=== PATIENT | male | born 1995 | race African-American/Black ===

== ENCOUNTER 2019-05-18 20:19 | Emergency (ER) | payer SELFPAY ==
--- NOTE | 2019-05-18 20:37 | EDM.PDOC ---
ED HPI GENERAL MEDICAL PROBLEM - General Stated Complaint: CHECK BLOOD/CHECK UP Time Seen by Provider: 05/18/19 20:36 Source of Information: Reports: Patient History Limitations: Reports: No Limitations - History of Present Illness INITIAL COMMENTS - FREE TEXT/NARRATIVE: pt has no c/o. requesting blood test for general check up. explained to pt the clinic can do more extensive testing. - Related Data Allergies Allergy/AdvReac Type Severity Reaction Status Date / Time No Known Allergies Allergy Verified 05/18/19 20:50 Home Meds: Home Meds . [No Known Home Meds] 05/18/19 [History] ED ROS GENERAL - Review of Systems Review Of Systems: ROS reveals no pertinent complaints other than HPI. ED EXAM, GENERAL - Physical Exam Exam: See Below Exam Limited By: No Limitations General Appearance: Alert, WD/WN, No Apparent Distress Eye Exam: Bilateral Eye: PERRL (pupils ER @ 4mm) Ears: Hearing Grossly Normal Throat/Mouth: Normal Voice, No Airway Compromise Head: Atraumatic Neck: Non-Tender, Full Range of Motion Respiratory/Chest: No Respiratory Distress Cardiovascular: Regular Rate, Rhythm GI/Abdominal: Soft, Non-Tender Neurological: Alert, Oriented, Normal Cognition, Normal Gait, No Motor/Sensory Deficits Psychiatric: Normal Affect, Normal Mood Skin Exam: Warm, Dry, Normal Color Lymphatic: No Adenopathy Course - Vital Signs Last Recorded V/S: Last Vital Signs Temp 36.4 C 05/18/19 20:51 Pulse 64 05/18/19 20:51 Resp 16 05/18/19 20:51 BP 108/68 05/18/19 20:51 Pulse Ox 100 05/18/19 20:51 - Orders/Labs/Meds Labs: Laboratory Tests 05/18/19 05/18/19 Range/Units 20:43 20:43 WBC 5.8 (5.0-10.0) 10^3/uL RBC 5.13 (4.6-6.2) 10^6/uL Hgb 15.3 (14.0-18.0) g/dL Hct 43.5 (40.0-54.0) % MCV 84.8 (80-100) fL MCH 29.8 (27.0-34.0) pg MCHC 35.2 H (33.0-35.0) g/dL Plt Count 277 (150-450) 10^3/uL Neut % (Auto) 46.8 (42.2-75.2) % Lymph % (Auto) 40.9 (20.5-50.1) % [place] % (Auto) 9.2 H (2-8) % Eos % (Auto) 1.9 (1.0-3.0) % Baso % (Auto) 1.2 H (0.0-1.0) % Sodium 135 (135-145) mmol/L Potassium 3.7 (3.6-5.0) mmol/L Chloride 103 (101-111) mmol/L Carbon Dioxide 24.0 (21.0-31.0) mmol/L Anion Gap 11.7 BUN 17 (7-18) mg/dL Creatinine 0.9 (0.6-1.3) mg/dL Est Cr Clr Drug Dosing 126.65 mL/min Estimated GFR (MDRD) > 60 BUN/Creatinine Ratio 18.88 Glucose 87 (74-105) mg/dL Calcium 9.5 (8.4-10.2) mg/dl Total Bilirubin 0.8 (0.2-1.0) mg/dL AST 30 (10-42) IU/L ALT 23 (10-60) IU/L Alkaline Phosphatase 52 (42-121) IU/L Total Protein 7.9 (6.7-8.2) g/dl Albumin 4.3 (3.2-5.5) g/dl Globulin 3.6 Albumin/Globulin Ratio 1.19 - Re-Assessments/Exams Free Text/Narrative Re-Assessment/Exam: 05/18/19 21:43 results discussed with pt Departure - Departure Time of Disposition: 21:43 Disposition: Home, Self-Care 01 Condition: Good Clinical Impression: Well adult health check - Discharge Information Forms: ED Department Discharge Additional Instructions: 1) see clinic for further other testings that are not available in the ER
[2019-05-18 21:12] LABS: ANION GAP 11.7; CHLORIDE,CL 103 mmol/L (101-111); SODIUM,NA 135 mmol/L (135-145)
== END 2019-05-18 22:00 | disposition home or self-care (01) ==
LOC: DL.ED 20:19
DX: Z00.00 Encounter for general adult medical examination without abnormal findings (principal)
CPT/HCPCS: 36415; 80053; 85025; 99282

== ENCOUNTER 2019-12-03 19:35 | Emergency (ER) | payer SELFPAY ==
--- NOTE | 2019-12-03 20:32 | EDM.PDOC ---
ED HPI GENERAL MEDICAL PROBLEM - General Chief Complaint: General Stated Complaint: sweating Time Seen by Provider: 12/03/19 19:50 Source of Information: Reports: Patient History Limitations: Reports: No Limitations - History of Present Illness INITIAL COMMENTS - FREE TEXT/NARRATIVE: ED with c/o of skin itching on abdomen and back, some to arms when sweats. No other sx, Has been going on for months. Has not tried anything to alleviate sx. Does not notice itching unless working out and sweating - Related Data Allergies Allergy/AdvReac Type Severity Reaction Status Date / Time No Known Allergies Allergy Verified 12/03/19 19:43 Home Meds: Home Meds . [No Known Home Meds] 05/18/19 [History] Past Medical History - Past Health History Medical/Surgical History: Denies Medical/Surgical History Social & Family History - Family History Family Medical History: Noncontributory - Tobacco Use Smoking Status *Q: Never Smoker Second Hand Smoke Exposure: No - Caffeine Use Caffeine Use: Reports: None - Recreational Drug Use Recreational Drug Use: No ED ROS GENERAL - Review of Systems Review Of Systems: Comprehensive ROS is negative, except as noted in HPI. ED EXAM, GENERAL - Physical Exam Exam: See Below Exam Limited By: No Limitations General Appearance: Alert, No Apparent Distress Eye Exam: Bilateral Eye: EOMI Ears: Normal External Exam, Normal TMs Nose: Normal Inspection Throat/Mouth: Normal Inspection Head: Atraumatic, Normocephalic Neck: Normal Inspection Respiratory/Chest: No Respiratory Distress, Lungs Clear, Normal Breath Sounds Cardiovascular: Regular Rate, Rhythm GI/Abdominal: Soft Back Exam: Normal Inspection Extremities: Normal Inspection Neurological: Alert, Oriented, Normal Cognition Psychiatric: Normal Affect, Normal Mood Skin Exam: Warm, Dry, Intact, No Rash, Other (skin dry no rash no papules, no sign of infection. ). No: Rash, Wound/Incision Course - Vital Signs Last Recorded V/S: Last Vital Signs Temp 98.2 F 12/03/19 19:42 Pulse 83 12/03/19 19:42 Resp 18 12/03/19 19:42 BP 103/74 12/03/19 19:42 Pulse Ox 100 12/03/19 19:42 Departure - Departure Time of Disposition: 20:27 Disposition: Home, Self-Care 01 Condition: Good Clinical Impression: Itching - Discharge Information *PRESCRIPTION DRUG MONITORING PROGRAM REVIEWED*: No *COPY OF PRESCRIPTION DRUG MONITORING REPORT IN PATIENT [place]: No Instructions: Pruritus Forms: ED Department Discharge Additional Instructions: skin moisturizer without alcohol or perfume additives increase fluids non allergenic soaps clinic follow up if not improving after one week trial trial OTC antihistamine daily as needed, loratadine for example or zyrtec per package instructions Sepsis Event Note - Evaluation Sepsis Screening Result: No Definite Risk - Focused Exam Vital Signs: Vital Signs Temp Pulse Resp BP Pulse Ox 12/03/19 19:42 98.2 F 83 18 103/74 100 Date Exam was Performed: 12/04/19 Time Exam was Performed: 04:54
== END 2019-12-03 20:41 | disposition home or self-care (01) ==
LOC: DL.ED 19:35
DX: L29.9 Pruritus, unspecified (principal)
CPT/HCPCS: 99282

== ENCOUNTER 2021-08-27 08:59 | Emergency (ER) | payer SELFPAY ==
[2021-08-27] MEDS ORDERED: Ibuprofen 800 MG Tab PO ONE (09:12)
[2021-08-27] MEDS ORDERED: Gentamicin 0.3% Ophth Soln 5 ML Bottle EYELF ONE (09:12)
== END 2021-08-27 09:39 | disposition home or self-care (01) ==
LOC: DL.ED 08:59
DX: H00.034 Abscess of left upper eyelid (principal)
CPT/HCPCS: 99283; A9270